=== PATIENT | female | born 1970 | race Caucasian/White ===

== ENCOUNTER 2016-04-18 15:38 | Inpatient (IN) | payer MEDICARE, MEDICAID ==
[~2016-04-18] VITALS: Ht 167.6 cm; Wt 64.9 kg
[2016-04-18 15:43] VITALS: BP 155/76; PULSE 114; RESP 26; O2SAT 100
[2016-04-18] MEDS ORDERED: 0.9% Sodium Chloride 1,000 ML IV ONE ×2 (16:15)
--- NOTE | 2016-04-18 16:17 | ED.REPORT ---
HPI-Overdose/Alcohol Toxicity Date of Service Apr 18, 2016 ED Provider: Jose R Tillman MD A 45 year old female with a medical history including Crohn's disease, alcohol abuse, COPD, rhabdomyolysis, frequent UTIs, and SBO presents to the ED requesting assistance with alcohol withdrawal. The patient has been regularly drinking six drinks per day for the past five years, but has only had two alcoholic drinks today - two hours prior to arrival. Current withdrawal symptoms include tremor and generalized myalgias. The patient also believes she is experiencing a Crohn's flare-up and a UTI, with symptoms including diarrhea ( x50), nausea, vomiting, abdominal pain, dehydration, subjective fever, diaphoresis, chills, dysuria, and urinary frequency onset "a couple of days ago. " Five days ago the patient finished a week-long course of Bactrim for a UTI, with short-term relief. The patient denies other symptoms. Nursing Notes Stated Complaint: CROHNS/DEHYDRATION Chief Complaint: General Complaint Nursing Notes Reviewed: Yes (InformedDNA, Matcha not reconciled) Allergies: Coded Allergies: TAPE (Verified Allergy, Mild, 04/18/16) azathioprine (Verified Allergy, Mild, 04/18/16) quetiapine (Verified Allergy, Mild, 04/18/16) trazodone (Verified Allergy, Mild, 04/18/16) hydroxyzine (Verified Adverse Reaction, Intermediate, PARADOXICAL ANXIETY/ HYPERACTIVITY, 04/18/16) Scheduled Benztropine Mesylate (Benztropine Mesylate) 0.5 Mg Tablet 0.5 MG PO TID Carbamazepine (Carbamazepine) 200 Mg Tablet 200 MG PO TID Fluoxetine (Fluoxetine) 40 Mg Capsule 40 MG PO DAILY Gabapentin (Gabapentin) 400 Mg Capsule 800 MG PO TID Haloperidol (Haloperidol) 1 Mg Tablet 1 MG PO BID Ipratropium [place] (Atrovent HFA) 200 Puff/12.9 Gm Inhaler 2 PUFF INH QID Omeprazole (Omeprazole) 20 Mg Capsule.dr 20 MG PO QAM Vedolizumab (Entyvio) 300 Mg Vial 300 MG IV [id number] Scheduled PRN Albuterol HFA (Proair HFA) 8.5 Gm Hfa.aer.ad 2 PUFFS INHALATION Q4H PRN PRN For Shortness of Breath Ondansetron ODT (Ondansetron ODT) 8 Mg Tab.rapdis 8 MG PO TID PRN PRN For Nausea Oxycodone (Roxicodone) 5 Mg Tablet 10 MG PO Q4H PRN PRN For Pain Promethazine Supp (Promethazine Supp) 25 Mg Supp 25 MG RECTAL Q8H PRN PRN For Nausea Tizanidine (Tizanidine) 4 Mg Tablet 2 MG PO TID PRN PRN Muscle Spasms General Time Seen by Provider: 16:16 Chief Complaint Other (Alcohol Withdrawal) Hx Obtained From: Patient Arrived By: Walk-in Onset Occurred: 1 - 4 hours ago (With additional symptoms onset "a couple of days ago") Symptom Duration: Since onset Location: : Abdomen (and generalized myalgias) Quality: Painful Severity: Current: Moderate Severity: Maximum: Moderate Associated with: Reports: Abdominal pain, Diarrhea, Lethargy, Nausea, Vomiting Pertinent Negative: Relieved by nothing Related History: Reports: Alcoholism, Substance abuse Immunizations: Unknown Recent Healthcare: No recent doctor visit Similar Sx Previous: Yes Past Medical History Past Medical History Notes: Last Admit 2013 w/rhabdomyolysis and substance abuse Past Medical History Rhabdomyolysis Crohn's disease SBO s/p ileocecectomy (2003) Raynaud phenomenon Erythema nodosum H/o Methamphetamine abuse H/o Opioid abuse and dependence, on Suboxone. Bronchiectasis and nodular densities by CT in January 2008. Neck and the groin adenopathy COPD Past Surgical History Hernia repair Ganglion cyst removal Appendectomy Ileocecectomy (2003) Social History Alcohol Use: >5 per day Other Social History: Good social support Ambulatory Status Independent Review of Systems Review of Systems Note: + Dehydration, tremor Constitutional: Reports: Chills, Fever (Subjective) Respiratory: Denies: Non-productive cough, Shortness of breath GI: Reports: Abdominal pain, Diarrhea, Nausea, Vomiting Musculoskeletal: Reports: Myalgia (Generalized) Skin: Reports Diaphoresis Complete sys rev & neg: except as marked. Female: Reports: Dysuria, Urinary frequency Physical Exam Physical Exam Notes: Initial Vital Signs Vital Signs (First) Date Time Temp Pulse Resp B/P Pulse Ox O2 Delivery O2 Flow Rate FiO2 04/18/16 15:43 36 114 26 155/76 100 Room Air Initial VS: Reviewed, Vital signs abnormal Head / Eyes: Atraumatic, Normocephalic General/Constitutional: Awake, Alert Distress / Hydration: Positive: Dehydration moderate Behavior: Positive: Anxious Appearance / Presentation: Positive: Cachectic Smells of alcohol Appears in withdrawal Respiratory / Chest: Breath sounds NL, Breath sounds = bilat, No respiratory distress Cardiovascular: Regular rhythm, Heart sounds NL Heart Rate / Rhythm: Positive: Tachycardia Abdomen: Soft, Non-tender No ascites Neurologic: Oriented X3, Speech NL Movement Abnormality: Positive: Tremor ENT: Airway patent Mouth: Positive: Mucous membranes dry Skin: Warm, Dry No track pearce Interpretation & Diagnostics URINE : Negative URINE DRUG SCREEN: Negative Lab Results Interpretation Result Diagram: 04/18/16 1635 04/18/16 1635 Test 04/18/16 16:35 White Blood Count 7.7th/mm3 (3.8-10.1) Red Blood Count 4.66mil/mm3 (3.90-5.20) Hemoglobin 14.0g/dL (12.0-15.6) Hematocrit 40.4% (35.0-46.0) Mean Corpuscular Volume 86.7fL (81-100) Mean Corpuscular Hemoglobin 30.0pg (27.0-35.0) Mean Corpuscular Hemoglobin Concent 34.7% (32.0-37.0) Red Cell Distribution Width 19.0% (12.3-15.4) Platelet Count 176bil/L (150-400) Neutrophils (%) (Auto) 64.3% (40-74) Lymphocytes (%) (Auto) 27.6% (14-46) Monocytes (%) (Auto) 6.3% (4-12) Eosinophils (%) (Auto) 1.3% (0-5) Basophils (%) (Auto) 0.4% (0-3) Erythrocyte Sedimentation Rate 44mm/hr (0-32) Prothrombin Time 11.7sec (8.1-12.5) Prothromb Time International Ratio 1.09ratio Sodium Level 136mEq/L (134-144) Potassium Level 3.8mEq/L (3.5-5.2) Chloride Level 101mEq/L (97-108) Carbon Dioxide Level 18mmol/L (18-29) Blood Urea Nitrogen 10mg/dL (6-24) Creatinine 0.66mg/dL (0.57-1.00) Estimat Glomerular Filtration Rate 138mL/min (>59) Glucose Level 86mg/dL (60-99) Calcium Level 8.4mg/dL (8.5-10.1) Total Bilirubin 0.7mg/dL (0.0-1.2) Aspartate Amino Transf (AST/SGOT) 44U/L (0-50) Alanine Aminotransferase (ALT/SGPT) 23U/L (0-32) Alkaline Phosphatase 90U/L (25-150) Total Creatine Kinase 110U/L (21-215) Total Protein 7.2g/dL (6.4-8.4) Albumin 4.1g/dL (3.4-5.0) Lipase 70U/L (13-60) Alcohol, Quantitative 158mg/dL (0-10) Lab Results Interpretation: CBC normal CMP normal ESR elevated Alcohol elevated Lactic acid marginally elevated, more difficult to interpret in this chronic alcoholic Blood cultures pending UA pending Lipase marginally elevated, likely secondary to chronic alcoholism Re-Eval/Medical Decision Med Decision/Clinical Course This is a 45-year-old female presents with a multitude of symptoms. She arrives tremulous, tachycardic, and smells of alcohol, reports been trying to stop drinking. She is heavily daily, and is concerned about withdrawal. This she has long history of Crohn's, and feels that she is having a "flare". She has had some diarrhea as well as some diffuse abdominal pain. She is also worried about UTI, was recently treated with Bactrim and finished antibiotics about 5 days ago, claims that she has "chronic UTIs" and requires multiple rounds of antibiotics. Exam patient has abnormal vitals, was very tachycardic, slightly tachypneic but is not febrile or hypotensive. She clinically appears to be in significant withdrawal is very tremulous and tachycardic. She is very restless. However she is mentating without overt delirium. Abdomen is soft and nontender without clinical signs of peritonitis, or medical findings indicated need for emergent abdominal imaging. The patient received multiple titrated rounds of diazepam per the CIWA protocol and is markedly improved on reevaluation. She is much less tremulous, also still slightly tremulous-and her tachycardia is improved. She is also much less restless, and again appears overall nontoxic. Serial abdomens continue remained soft and nontender without signs of peritonitis. Blood work reveals a mildly elevated sedimentation rate, and the patient is on immunosuppressives for her Crohn's, and this may be a component of a mild flare. Vicodin anything on physical exam, laboratories and really suggest antibiotics for Crohn's indicated. The urine has been sent, but has not been resulted the patient does have dysuria, if that urine is normal, and approximately warranted at that time. The patient does have a mildly elevated lactic acid, but is along the standing alcoholic which is known to cause mildly elevated lactic acid. Sepsis is in the differential but seems much less likely., Amoxil be warranted if the urine does return abnormal. Patient received fluids, and a small amount of pain medicine. The amount of diazepam required for management in the department, admission to the hospital continued management is warranted. Case is with the admitting hospitalist Source of Hx: Old records Re-Evaluation/Progress : Time of Eval: 18:44 Patient Status: Condition improved Re-Evaluation/Progress Note: Patient's tremor and pain have improved. Discussed with patient lab results, diagnosis, and plan for admit. Patient agrees with plan for care and all questions were addressed. Consultation : Referral / Consult Name: Tera Jacques MD Consulted With: Hospitalist Call Returned at: 18:21 Beer Cooler: Agrees with eval, Agrees with plan, Accepts admit Differential Diagnosis: Positive: Alcohol abuse, Intoxication, alcohol Counseled Regarding: Diagnosis, Lab results, Need for admission Discharge & Departure Impression: Primary Impression: Alcohol withdrawal Complication of substance-induced condition: uncomplicated Qualified Code: F10.230 - Alcohol dependence with withdrawal, uncomplicated Additional Impression: Crohns disease Gastrointestinal tract location: unspecified location Digestive disease complication type: without complications Qualified Code: K50.90 - Crohn's disease, unspecified, without complications Disposition: ADMITTED TO HOSPITAL Discharge Condition All VS Reviewed: Yes Condition: Improved Referrals: NOPCP (PCP) Tristan Attestation Portions of this note were transcribed by Mary Villasenor. I, Dr. Tillman, personally performed the history, physical exam, and medical decision-making; I reviewed and confirmed the accuracy of the information in the transcribed note. Signed by: Tristan Mendoza, 04/18/2016, 19:35 Jose R Tillman MD Apr 18, 2016 16:17 MARY VILLASENOR Apr 18, 2016 16:29 Signed by: Tristan Mendoza, 04/18/2016, 19:35 Jose R Tillman MD Apr 18, 2016 16:17 MARY VILLASENOR Apr 18, 2016 16:29
[2016-04-18] MEDS ORDERED: Promethazine Inj 25 MG in Dextrose 5%-Pha MIX 50 ML IV ONE (16:30)
[2016-04-18 16:45] LABS: BASOPHILS % (AUTO) 0.4 % (0-3); EOSINOPHILS % (AUTO) 1.3 % (0-5); MONOCYTES % (AUTO) 6.3 % (4-12); Mean Corpuscular Volume 86.7 fL (81-100); NEUTROPHILS % (AUTO) 64.3 % (40-74); Platelet Count 176 bil/L (150-400)
[2016-04-18 17:02] LABS: INR 1.09 ratio
[2016-04-18 17:18] LABS: ERYTHROCYTE SEDIMENTATION RATE 44 mm/hr (0-32)
[2016-04-18] MEDS: 0.9% Sodium Chloride 1,000 ML IV SCH (18:24)
[2016-04-18] MEDS ORDERED: Alum-Mag Hydrox-Simeth 30 mL Suspension PO PRN (18:25)
[2016-04-18] MEDS ORDERED: Thiamine Inj 100 MG, Folic Acid Inj 1 MG, Magnesium Sulfate 50% Inj 2 GM, Multivitamins... IV ONE ×5 (18:25)
[2016-04-18] MEDS ORDERED: Multivitamin w/Vit K Inj 10 ML, Thiamine Inj 100 MG, Folic Acid Inj 1 MG, Magnesium Sul... IV ONE ×5 (18:43)
[2016-04-18] MEDS ORDERED: HYDROmorphone 0.5 mg/0.5 mL iSecure Syringe IVPUSH ONE (18:45)
[2016-04-18] MEDS ORDERED: TIZA4TAB4 PO (18:47)
[2016-04-18] MEDS ORDERED: OMEP20CA11 PO (18:54)
[2016-04-18] MEDS ORDERED: VEDO300V IV (18:54)
[2016-04-18] MEDS ORDERED: ALBU8.5H2 INHALATION (18:54)
[2016-04-18] MEDS ORDERED: FLUO40CA PO (18:54)
[2016-04-18] MEDS ORDERED: PROM25SU47 RECTAL (18:54)
[2016-04-18] MEDS ORDERED: GABA-504 PO (18:54)
[2016-04-18] MEDS ORDERED: BENZ0.5T3 PO (18:54)
[2016-04-18] MEDS ORDERED: HALO1TAB PO (18:54)
[2016-04-18] MEDS ORDERED: CRB200T PO (18:54)
[2016-04-18] MEDS ORDERED: OXYC-474 PO (18:54)
[2016-04-18] MEDS ORDERED: ONDA8TAB10 PO (18:54)
[2016-04-18] MEDS ORDERED: ATRINH INH (18:56)
[2016-04-18 19:27] LABS: APPEARANCE,URINE CLEAR (CLEAR,HAZY); COLOR,URINE YELLOW (YELLOW); OCCULT BLOOD,URINE TRACE (NEGATIVE); PH,URINE 5.5 (5.0-8.0); UROBILINOGEN,URINE NORMAL (NORMAL)
[2016-04-18 19:40] VITALS: BP 153/94; PULSE 94; RESP 20; O2SAT 94
[2016-04-18 19:41] VITALS: BP 154/100; PULSE 90; RESP 17; O2SAT 99
[2016-04-18 19:49] VITALS: PULSE 90
--- NOTE | 2016-04-18 23:34 | PCM.HPMED ---
Subjective Date of Service Apr 18, 2016 Primary Provider: Admitting Physician: Tera Jacques MD Primary Care Physician: Nopcp Attending Physician: Tera Jacques MD Admit Status: From the Emergency Department, Full Admit, [facility] Telemetry Chief Complaint: Alcohol withdrawal History of Present Illness: 45 year old female with Alcoholism, Crohns disease and polysubstance abuse who presents to [facility] emergency department requesting assistance with alcohol withdrawal. Patient reports last drink was this morning. She also reports having diffuse diarrhea onset three days ago. The patient also reports nausea, vomiting, abdominal pain (diffuse, non radiating), dehydration, subjective fever, diaphoresis, chills, dysuria, and urinary frequency. Patient has history of Crohns with uncontrolled symptoms. The patient reports a history of chronic urinary tract infections with only short-term relief with antibiotics. She just finished a week-long course of Bactrim 5-6 days ago. She normally consumes approximately six alcoholic drinks per day, with withdrawal symptoms of tremor and generalized myalgias. Case discussed with PAULA Crocker score high and will be admitted for Alcohol withdrawal protocol Review of Systems: Pertinent positives as noted in HPI. All other systems were reviewed and are negative Allergies Coded Allergies: TAPE (Verified Allergy, Mild, 04/18/16) azathioprine (Verified Allergy, Mild, 04/18/16) quetiapine (Verified Allergy, Mild, 04/18/16) trazodone (Verified Allergy, Mild, 04/18/16) hydroxyzine (Verified Adverse Reaction, Intermediate, PARADOXICAL ANXIETY/ HYPERACTIVITY, 04/18/16) Home Medications From patient list Entyvio 300 mg IV q 8 weeks Zofran 8 mg tid PRN Omeprazole 20 mg daily Oxycodone 10 mg q 4 hours PRN Haldol 1 mg bid Gabapentin 800 mg tid Fluoxetine 40 mg daily Carbamazepine 200 mg tid Benztropine 0.5 mg tid Tizanidine 2 mg tid PRN Atrovent and Albuterol inhaler Promethazine 25 mg q 8 PRN PMH 1. Polysubstance abuse. a. Methamphetamine abuse, active. b. Opioid abuse and dependence, on Suboxone. c. Tobacco dependence, active. 2. Bronchiectasis and nodular densities by CT in January 2008. 3. Crohn disease, status post the ileocecectomy in 2003 for obstruction. 4. Neck and the groin adenopathy, seen by Dr. Blanco. Surgical History ileocecectomy Family History No family history of premature coronary disease Social History Hx Alcohol Use: Yes Alcoholic Drinks Per Day: 6 beers plus a day Hx Substance Use: Yes (Alcohol current, Meth 5 years ago quit) Hx Tobacco Use: Yes Smoking Status: Current Every Day Smoker Exam Vital Signs Vital Sign - Last Date Time Temp Pulse Resp B/P Pulse Ox O2 Delivery O2 Flow Rate FiO2 04/18/16 15:43 36 114 26 155/76 100 Room Air Exam General: Alert, Oriented X3, Cooperative,mild acute Distress with shaking and anxiety noted Eyes: PERRLA, Scleral Anicteric Mouth: Mouth Normal, Mucous Membranes dry Neck: Supple, no Thyromegaly, trachea central. Chest & Lungs: Clear to auscultation & percussion, No adventitious breath sounds, no crackles, no wheeze Cardiovascular: Normal S1, Normal S2, No Murmurs/Rubs/Gallops, Regular Rate/ Rhythm, (No JVD, no peripheral edema) Pulses: Radial (present and equal), Dorsalis Pedi (present and equal) Abdomen: Soft, Non-tender, Non-distended, Normoactive bowel tones. NO stigmata of liver disease Musculoskeletal: Unremarkable. Normal range of motion, no swollen or erythematous joints Extremities: No edema, no cyanosis, no clubbing. Skin: No rashes. Warm and dry, no erythematous areas Neurological: Grossly neurologically intact, Normal Speech, Sensation Intact Lymphatic: Lymph nodes Cervical and Axillary not palpable. Lab and Diagnostics Labs Laboratory Tests Test 04/18/16 16:35 White Blood Count 7.7th/mm3 (3.8-10.1) Red Blood Count 4.66mil/mm3 (3.90-5.20) Hemoglobin 14.0g/dL (12.0-15.6) Hematocrit 40.4% (35.0-46.0) Mean Corpuscular Volume 86.7fL (81-100) Mean Corpuscular Hemoglobin 30.0pg (27.0-35.0) Mean Corpuscular Hemoglobin Concent 34.7% (32.0-37.0) Red Cell Distribution Width 19.0% (12.3-15.4) Platelet Count 176bil/L (150-400) Neutrophils (%) (Auto) 64.3% (40-74) Lymphocytes (%) (Auto) 27.6% (14-46) Monocytes (%) (Auto) 6.3% (4-12) Eosinophils (%) (Auto) 1.3% (0-5) Basophils (%) (Auto) 0.4% (0-3) Erythrocyte Sedimentation Rate 44mm/hr (0-32) Prothrombin Time 11.7sec (8.1-12.5) Prothromb Time International Ratio 1.09ratio Sodium Level 136mEq/L (134-144) Potassium Level 3.8mEq/L (3.5-5.2) Chloride Level 101mEq/L (97-108) Carbon Dioxide Level 18mmol/L (18-29) Blood Urea Nitrogen 10mg/dL (6-24) Creatinine 0.66mg/dL (0.57-1.00) Estimat Glomerular Filtration Rate 138mL/min (>59) Glucose Level 86mg/dL (60-99) Lactic Acid Level 2.4mmol/L (0.4-2.0) Calcium Level 8.4mg/dL (8.5-10.1) Total Bilirubin 0.7mg/dL (0.0-1.2) Aspartate Amino Transf (AST/SGOT) 44U/L (0-50) Alanine Aminotransferase (ALT/SGPT) 23U/L (0-32) Alkaline Phosphatase 90U/L (25-150) Total Creatine Kinase 110U/L (21-215) Total Protein 7.2g/dL (6.4-8.4) Albumin 4.1g/dL (3.4-5.0) Lipase 70U/L (13-60) Alcohol, Quantitative 158mg/dL (0-10) Microbiology 04/18/16 Blood Culture, Received Pending Result Diagram: 04/18/16 1635 04/18/16 1635 Assessment & Plan 45 year old female with Alcoholism, crohns disease and polysubstance abuse who presents to [facility] emergency department requesting assistance with alcohol withdrawal. 1. Alcohol intoxication and withdrawal syndrome. Present on admission No evidence of Hepatitis. Patient denies any previous withdrawal seizures - monitor on telemetry - continue [facility] protocol - stamping die try out worker consult to provide outpatient resources and Detox placement 2. Acute diarrhea. Present on admission Suspect opioid withdrawal syndrome or Cronhs flare. C difficile colitis also considered given recent antibiotics exposure - PCR stool studies including C difficile testing - continue IV fluids - consider Imodium if no infectious cause is identified 3. Lactic acidosis. Present on admission due to tissue hypoxia from diarrhea. - will trend levels till normal - continue IV fluids 4. Cronhs disease' Suspect patient has a flare but unclear - consider steroids - currently on Entyvio 300 mg IV every 8 weeks - consider Gastroenterology consult 5. Nicotine dependence cessation discussed and encouraged especially the fact her Crohn worsens with smoking - Nicotine patch when requested 6. History of opioid abuse and dependence. She reports using Suboxone in the past. - continue Oxycodone PRN, no IV narcotics as this is not indicated - Acetaminophen as needed for mild pain/fever/headache - Bowel regimen as needed - Antiemetic as needed Patient admitted under inpatient status with expected length of stay > 2 midnights for severity of present symptoms, complexities of treatment plan and risk for adverse event . Resuscitation Status: CPR: Attempt Resuscitation Tera Jacques MD Apr 18, 2016 18:44
[2016-04-19] VITALS (8 sets, daily range): BP systolic 124–167; BP diastolic 91–108; PULSE 93–115; RESP 18–20; O2SAT 95–99
[2016-04-19] MEDS: Heparin 5,000 Unit/mL Inj SUBQ SCH ×3 (00:09→17:43)
[2016-04-19] MEDS: Ondansetron 2 mg/mL 2 mL Inj IVPUSH PRN ×4 (00:49→19:52)
[2016-04-19] MEDS: 0.9% Sodium Chloride 1,000 ML IV SCH ×2 (04:37→14:39)
--- NOTE | 2016-04-19 06:42 | NUR ---
Admit/Tele/CIWA Admitted to room @ 1999, on telemetry, SR 95, NS @100 , plus Banana Bag , CIWA ranged from 19-36. gave IV Diazepam 5 Mg x 1, 10 Mg x8, A&O x3 , somewhat confused at times, Uses call light appropriately , most of the time tremulous between medications, Nausea controlled w 8 Mg Zofran despite Pt claim that it doesn't work. Pt's history is more complicated that she will share openly, but she hints at polysubstance abuse. SW will follow
[2016-04-19] MEDS: Pantoprazole 20 mg ER24 Tablet PO SCH (08:18)
[2016-04-19] MEDS: Multivit-Miner-Folic Acid-Iron Tablet PO SCH (08:19)
--- NOTE | 2016-04-19 15:55 | NUR ---
Social Work Note: Initial Assessment Data& Assessment: EMR reviewed. SW met with pt at bedside to discuss discharge planning, SW role explained. Nini Oliva is a 45 year old female admitted on 04/18/2016 for ETOH Withdrawal and Crohns. Pt has Medicare and [employer]. Pt lives in [place] with her mother and is independent at baseline. Pt does not use any DME and does not have a or SNF hx. Pt does not have LTC insurance or VA benefits. Pt provided with DPOA/ADvance Directive paperwork to review and complete when possible. Pt explained she was interested in detoxing because she realized alcohol was making her Crohns worse instead of better. SW offered to send referral to [facility] for bedside assessment. Pt explained she will think about it and requested SW return later when she is feeling better and less drowsy. Pt denies any other needs at this time. SW to continue to follow. Plan: Anticipated discharge back home with mother when medically ready. SW to follow up with pt regarding CD assessment. Pt denies any other needs at this time. SW to continue to follow. ENRICO Plata Addendum: 04/19/16 at 1618 by LALIT OATES Amended: Links added.
--- NOTE | 2016-04-19 18:02 | NUR ---
CIWA/abdominal pain/diarrhea Cardiac: Pt denies CP, Tele: SR 90s-100s Resp: Pt reports mild SOB with activity, "I can't get a deep enough breath and I breath fast". SPO2 99% on RA. Continuous pulse ox on. Pt reports she has AIMEE, instructed to have family or friends bring in her CPAP GI/: Pt reports mild nausea, zofran given with some moderation, also reports diarrhea that she has had for "two or three years". Pt has Hx of Crohns. Neuro: A&Ox3, BERG, pt is impulsive, kyle on bed. CIWA from mid 20s this AM down to 13 through the course of the day. Extra [address] Lucero and pt asleep for last part of shift.
--- NOTE | 2016-04-19 20:17 | PCM.PNMED ---
Subjective Date of Service Apr 19, 2016 Subjective overnight: CIWA ranged from 19-36. gave IV Diazepam 5 Mg x 1, 10 Mg x8. No acute events otherwise. Today: She states that she is ready to try eating lunch. She does not believe that the diazepam is working appropriately. She believes lorazepam is the drug she needs. She states that she is ready to quit drinking. The patient continues to complain of headaches with vision changes which sound chronic in nature. Abdominal pain which sounds chronic in nature. Exam Vital Signs Vital Sign - Last Date Time Temp Pulse Resp B/P Pulse Ox O2 Delivery O2 Flow Rate FiO2 04/19/16 03:15 36.5 101 20 127/91 96 Room Air Intake and Output 04/18/16 04/18/16 04/19/16 Cumulative From/Thru 15:00 23:00 07:00 04/18/16 15:43 - 04/19/16 06:27 Intake Total 2000 ml 2000 ml 4000 ml Output Total 400 ml 400 ml Balance 2000 ml 1600 ml 3600 ml Intake Oral 0 ml 0 ml IV Total 2000 ml 2000 ml 4000 ml Output Urine Total 400 ml 400 ml # Voids 2 2 Exam General: Alert, Oriented X3, Cooperative,mild acute Distress with shaking and anxiety noted Eyes: PERRLA, Scleral Anicteric Mouth: Mouth Normal, Mucous Membranes dry Neck: Supple, no Thyromegaly, trachea central. Chest & Lungs: Clear to auscultation & percussion, No adventitious breath sounds, no crackles, no wheeze Cardiovascular: Normal S1, Normal S2, No Murmurs/Rubs/Gallops, Regular Rate/ Rhythm, (No JVD, no peripheral edema) Pulses: Radial (present and equal), Dorsalis Pedi (present and equal) Abdomen: Soft, reports pain not worse with palpation, Non-distended, Normoactive bowel tones. NO stigmata of liver disease Musculoskeletal: Unremarkable. Normal range of motion, no swollen or erythematous joints Extremities: No edema, no cyanosis, no clubbing. Skin: No rashes. Warm and dry, no erythematous areas Neurological: Grossly neurologically intact, Normal Speech, Sensation Intact : no vargas in place Lab and Diagnostics Result Diagram: 04/18/16 1635 04/18/16 1635 Microbiology Microbiology HILDA CULTURE BLOOD Preliminary 04/19/16-1921 Organism 1 POSITIVE BLOOD CULTURE GRAM STAIN RESULT GRAM POSITIVE COCCI ?STAPH BC BOTTLE Isolated from Aerobic Bottle of Set Drawn DATE CALLED: 04/19/16 TIME CALLED: 1800 CALLED BY: [facility] FLOOR/DOCTOR: CELINE/DELBERT LYNCH READ BACK YES TYPE OF DRAW NURSE COLLLECT TYPE NOT SPECIFIED TIME OF POSITIVITY 1710 Assessment & Plan 45 year old female with Alcoholism, crohns disease and polysubstance abuse who presents to [facility] emergency department requesting assistance with alcohol withdrawal. Hospital day 2 1. Alcohol intoxication and withdrawal syndrome. Present on admission, stable treated No evidence of Hepatitis. Patient denies any previous withdrawal seizures - monitor on telemetry - continue CIWA protocol with Diazepam - workers compensation administrator consult to provide outpatient resources and Detox placement - [facility] records indicate that the patient has no PCP but was possibly on haldol 1mg BID will follow up 2. Acute diarrhea. Present on admission, under evaluation stable - Suspect opioid withdrawal syndrome or Crohn's flare. C difficile colitis also considered given recent antibiotics exposure noted on [facility] records - PCR stool studies including C difficile testing sent out on 04/19 - continue IV fluids - consider Imodium if no infectious cause is identified 3. Lactic acidosis. Present on admission, under evaluation, stable - micro shows staph possible skin cassandra contaminant continue to follow procalcitonin - possible due to tissue hypoxia from diarrhea. - will trend levels till normal - continue IV fluids 4. Crohn's disease, chronic, under evaluation, under evaluation - possible Chrohn's flare but unclear - consider steroids - currently on Entyvio 300 mg IV every 8 weeks - consider Gastroenterology consult 5. Nicotine dependence, chronic, stable - cessation discussed and encouraged especially the fact her Crohn's worsens with smoking - high dose Nicotine patch given 04/19 6. History of opioid abuse and dependence, chronic, stable - She reports using Suboxone in the past. - continue Oxycodone PRN, no IV narcotics as this is not indicated - Acetaminophen as needed for mild pain/fever/headache - Bowel regimen as needed - Antiemetic as needed DVT prophylaxis - SCD and encourage ambulation GI prophylaxis - not indicated at this time disposition: likely discharge in 2-3 days with no unforseen setbacks in health, will likely need social work to help with referral to continued rehabilitation facility to promote sobriety Pain Evaluation: Adequate Pain Control GI Prophylaxis: Not indicated VTE Prophylaxis: SCDs VTE Mechanical Devices: Intermittant Pneumatic CD Resuscitation Status: CPR: Attempt Resuscitation Attending Statement The patient was seen and examined together with Dr. Basilio on 04/19/2016 and I agree with the history, exam and plan as outlined in the note above. . Matias Basilio DO Apr 19, 2016 07:38 Leon Lucero MD Apr 23, 2016 15:28
[2016-04-20] VITALS (7 sets, daily range): BP systolic 133–162; BP diastolic 90–109; PULSE 89–110; RESP 16–20; O2SAT 94–100
[2016-04-20] MEDS: Heparin 5,000 Unit/mL Inj SUBQ SCH ×4 (00:02→23:50)
[2016-04-20] MEDS ORDERED: cefTRIAXone Inj 2,000 MG in Dextrose 5% Minibag Plus 50 ML IV SCH (01:00)
[2016-04-20] MEDS ORDERED: Vancomycin Inj 1,500 MG in 0.9% Sodium Chloride 500 ML IV ONE (01:15)
[2016-04-20] MEDS: Vancomycin Dose per Pharmacist XX SCH ×2 (01:17→08:30)
[2016-04-20 03:28] LABS: BASOPHILS % (AUTO) 0.1 % (0-3); EOSINOPHILS % (AUTO) 2.4 % (0-5); MONOCYTES % (AUTO) 4.2 % (4-12); Mean Corpuscular Hemoglobin 29.6 pg (27.0-35.0); Mean Corpuscular Volume 90.4 fL (81-100); NEUTROPHILS % (AUTO) 72.6 % (40-74); Platelet Count 107 bil/L (150-400)
[2016-04-20 03:41] LABS: INR 0.96 ratio
[2016-04-20] MEDS: 0.9% Sodium Chloride 1,000 ML IV SCH ×2 (04:31→13:00)
--- NOTE | 2016-04-20 06:38 | NUR ---
CIWA/Blood Cultures/Urine Pt CIWA between 8-10 all shift. Administered 5mg Valium x3 and effective, pt able to rest intermittently during the shift. Pt also has positive blood cultures/urine. MD notified and pt started on Vanco and Ceftriaxone. VSS and Tele SR/T 90-110's.
--- NOTE | 2016-04-20 06:57 | PCM.CONPHA ---
Subjective Requesting Provider: Ángel Seay DO Alcohol withdrawal History of Present Illness bacteremia Reason for Pharmacy Consult: Vancomycin Dosing Objective Vital Signs Date Time Temp Pulse Resp B/P Pulse Ox O2 Delivery O2 Flow Rate FiO2 04/20/16 03:39 36.9 89 20 150/109 94 Room Air 04/19/16 23:33 36.9 110 20 124/97 95 Room Air 04/19/16 19:41 36.8 98 20 157/93 98 Room Air 04/19/16 16:01 36.9 100 18 138/99 95 Room Air 04/19/16 12:01 37.3 96 18 167/103 98 Room Air 04/19/16 11:04 107 04/19/16 08:07 36.6 93 20 151/108 99 Room Air Intake and Output 04/18/16 04/19/16 04/20/16 00:00 00:00 00:00 Intake Total 2000 ml 4325 ml Output Total 1350 ml Balance 2000 ml 2975 ml Weight (Kilograms): 63.700 Height (Feet): 5 Height (Inches): 6.00 Test 04/18/16 16:35 04/18/16 18:45 04/18/16 18:57 04/20/16 03:15 Erythrocyte Sedimentation Rate 44mm/hr (0-32) Total Creatine Kinase 110U/L (21-215) Lipase 70U/L (13-60) Alcohol, Quantitative 158mg/dL (0-10) Ammonia 17ug/dL (18-53) Urine Color Yellow (YELLOW) Urine Appearance Clear (CLEAR,HAZY) Urine pH 5.5 (5.0-8.0) Urine Specific Conrad <1.005 (1.003-1.035) Urine Protein Negativemg/dL (NEG,TRACE) Urine Glucose (UA) Negativemg/dL (NEGATIVE) Urine Ketones Negativemg/dL (NEGATIVE) Urine Occult Blood Trace (NEGATIVE) Urine Nitrite Negative (NEGATIVE) Urine Bilirubin Negative (NEGATIVE) Urine Urobilinogen Normalmg/dL (NORMAL) Urine Leukocyte Esterase Small (NEGATIVE) Urine RBC 0-2/hpf (0-2) Urine WBC 11-50/hpf (0-5) Urine Epithelial Cells Few/hpf (NONE-MOD) Urine Crystals None seen (NONE SEEN) Urine Bacteria Few/hpf (NONE-FEW) Urine Hyaline Casts None/lpf (NONE) Urine Granular Casts None seen (NONE SEEN) Urine Waxy Casts None seen (NONE SEEN) Urine Red Blood Cell Casts None seen (NONE SEEN) Urine White Blood Cell Casts None seen (NONE SEEN) Urine Mucus None seen (None Seen) Urine Trichomonas None seen (NONE SEEN) Urine Yeast None (NONE SEEN) Urinalysis Comment None Urine Culture Reflexed Indicated White Blood Count 9.3th/mm3 (3.8-10.1) Red Blood Count 4.05mil/mm3 (3.90-5.20) Hemoglobin 12.0g/dL (12.0-15.6) Hematocrit 36.6% (35.0-46.0) Mean Corpuscular Volume 90.4fL (81-100) Mean Corpuscular Hemoglobin 29.6pg (27.0-35.0) Mean Corpuscular Hemoglobin Concent 32.8% (32.0-37.0) Red Cell Distribution Width 18.8% (12.3-15.4) Platelet Count 107bil/L (150-400) Neutrophils (%) (Auto) 72.6% (40-74) Lymphocytes (%) (Auto) 20.6% (14-46) Monocytes (%) (Auto) 4.2% (4-12) Eosinophils (%) (Auto) 2.4% (0-5) Basophils (%) (Auto) 0.1% (0-3) Prothrombin Time 10.3sec (8.1-12.5) Prothromb Time International Ratio 0.96ratio Sodium Level 136mEq/L (134-144) Potassium Level 3.6mEq/L (3.5-5.2) Chloride Level 104mEq/L (97-108) Carbon Dioxide Level 22mmol/L (18-29) Blood Urea Nitrogen 3mg/dL (6-24) Creatinine 0.70mg/dL (0.57-1.00) Estimat Glomerular Filtration Rate 128mL/min (>59) Glucose Level 93mg/dL (60-99) Lactic Acid Level 0.7mmol/L (0.4-2.0) Calcium Level 7.5mg/dL (8.5-10.1) Total Bilirubin 0.8mg/dL (0.0-1.2) Aspartate Amino Transf (AST/SGOT) 68U/L (0-50) Alanine Aminotransferase (ALT/SGPT) 25U/L (0-32) Alkaline Phosphatase 92U/L (25-150) Total Protein 6.2g/dL (6.4-8.4) Albumin 3.3g/dL (3.4-5.0) Procalcitonin 0.05ng/mL (0.00-0.08) Assessment/Plan Assessment/Plan A/ - 45 y/o female patient admitted in patient on 04/18 for alcohol withdrawal and possible Crohn's flare. Late 04/19, blood culture drawn on 04/18 showed bacteremia and Vancomycin ordered for empirical coverage - Afebrile, WBC: 9.3 (7.7 on 04/18) - Wt: 63.7 kg, ht: 167.6 cm, Scr: 0.7 mg/dL, est. clearance ~ 100 ml/min, t1/ 2 ~8h, Vd ~ 45 L - Received Vancomycin 1.5G loading dose @0200 04/20 P/ - Give Vancomycin 1G iv q12h. Trough level ordered before 4th dose @0930 on 04/21 with estimate trough around 17 Pharmacy will continue to follow and make necessary adjustment Thank you for consulting clinical pharmacy in the care of this patient Phong Tolbert, PharmD, [facility] Adriana Tolbert Apr 20, 2016 06:57
[2016-04-20] MEDS ORDERED: Albuterol 2.5 mg/3 mL Inhalation Solution NEB PRN (07:00)
[2016-04-20] MEDS: Pantoprazole 20 mg ER24 Tablet PO SCH (07:54)
[2016-04-20] MEDS: Ipratropium HFA 200 Puff 12.9 Gm Inhaler INHALATION SCH ×4 (07:54→20:30)
[2016-04-20] MEDS: Multivit-Miner-Folic Acid-Iron Tablet PO SCH (08:44)
[2016-04-20] MEDS: chlordiazePOXIDE 25 mg Capsule PO PRN ×4 (09:54→23:50)
[2016-04-20] MEDS ORDERED: Vancomycin Inj 1,000 MG in IV Premix 1 EACH IV SCH ×2 (10:00→14:00)
[2016-04-20] MEDS ORDERED: Vancomycin Serum Trough XX ONE (13:30)
[2016-04-20] MEDS: Polyethylene Glycol (PEG) 17 Gm Powder PO PRN (15:44)
--- NOTE | 2016-04-20 15:58 | NUR ---
Social Work Note: Continued Discharge Planning Data& Assessment: SW met with pt at bedside to follow up on our conversation regarding her CD assessment. Pt explained she is not interested in speaking with anyone regarding treatment or resources because she is already enrolled in outpt CD tx and only has a few weeks left of her program. SW explained to pt that SW has our own CD assessment to complete with her, she requested SW come back tomorrow to complete the assessment as a friend had just entered the room and wanted to visit with him. SW to follow up with pt tomorrow to complete CD Assessment. Plan: Anticipated discharge home via POV when medically ready. SW to follow up with pt tomorrow to complete CD Assessment. SW to continue to follow. ENRICO Plata
--- NOTE | 2016-04-20 19:21 | NUR ---
CIWA Cardiac: Pt denies CP, Tele: SR 90s-100s Resp: pt stating mild SOB, SPO2 99% on RA, home inhalers scheduled. GI/: Pt reports mild nausea this AM, Po reglan given with good effect. Incontinent of urine in bed once. Pt has Hx of Crohns. Neuro: A&Ox3 able to BERG, CIWA 13 this AM down to 11 by end of shift, IV Valium changed to PO Librium.
--- NOTE | 2016-04-20 19:22 | PCM.PNMED ---
Subjective Date of Service Apr 20, 2016 Subjective overnight: Pt CIWA between 8-10 all shift. Administered 5mg Valium x3 and effective. Pt also has positive blood cultures/urine. notified and pt started on Vancomycin and Ceftriaxone. today: Patient is happy that she has been started on Librium states that she believes it will work better than the IV diazepam. She states that she is having her purchasing and claims supervisor changed to Dr. Borrego in hopes of having improvement in the treatment of her Crohn's. She states she has a date for stopping tobacco with her brother. Exam Vital Signs Vital Sign - Last Date Time Temp Pulse Resp B/P Pulse Ox O2 Delivery O2 Flow Rate FiO2 04/20/16 03:39 36.9 89 20 150/109 94 Room Air Intake and Output 04/19/16 04/19/16 04/20/16 Cumulative From/Thru 14:59 22:59 06:59 04/18/16 15:43 - 04/20/16 06:46 Intake Total 2325 ml 2481 ml 8806 ml Output Total 950 ml 2150 ml 3500 ml Balance 1375 ml 331 ml 5306 ml Intake Oral 1385 ml 850 ml 2235 ml IV Total 940 ml 1631 ml 6571 ml Output Urine Total 950 ml 2150 ml 3500 ml # Voids 2 # Bowel Movements 0 0 Exam General: Alert, Oriented X3, Cooperative, mild acute Distress with mild tremor noted Eyes: PERRLA, Scleral Anicteric Mouth: Mouth Normal, Mucous Membranes dry Neck: Supple, no Thyromegaly, trachea central. Chest & Lungs: Clear to auscultation & percussion, No adventitious breath sounds, no crackles, no wheeze Cardiovascular: Normal S1, Normal S2, No Murmurs/Rubs/Gallops, Regular Rate/ Rhythm, (No JVD, no peripheral edema) Pulses: Radial (present and equal), Dorsalis Pedi (present and equal) Abdomen: Soft, reports pain not worse with palpation, Non-distended, Normoactive bowel tones. NO stigmata of liver disease Musculoskeletal: Unremarkable. Normal range of motion, no swollen or erythematous joints Extremities: No edema, no cyanosis, no clubbing. Skin: No rashes. Warm and dry, no erythematous areas Neurological: Grossly neurologically intact, Normal Speech, Sensation Intact : no vargas in place Lab and Diagnostics Result Diagram: 04/20/16 0315 04/20/16 0315 Microbiology Microbiology HILDA CULTURE BLOOD Preliminary 04/20/16-1020 Organism 1 POSITIVE BLOOD CULTURE STAPH, PROBABLE COAGULASE NEG ID and Susceptibilities pending ISOLATED FROM ONE OF FOUR BOTTLES COLLECTED 04/18/16 Possible contaminant, clinical correlation required Microbiology HILDA CULT URINE Final 04/20/16-0828 Organism 1 ESCHERICHIA COLI U COLONY COUNT/QUANTITY 50,000-100,000 CFU/ml Organism 2 MIXED UROGENITAL CASSANDRA U COLONY COUNT/QUANTITY 10-25,000 CFU/ml 1. ESCHERICHIA COLI M.I.C Interp --------- ------ * AMOXICILLIN/CLAVULATE 4 S * AMPICILLIN 8 S * CEFAZOLIN (CEPHALOSPORIN) UTI 4 S * CEFEPIME <=1 S * CEFTRIAXONE <=1 S * CEFUROXIME SODIUM 4 S * CIPROFLOXACIN <=0.25 S * ERTAPENEM <=0.5 S * GENTAMICIN <=1 S * IMIPENEM <=1 S * LEVOFLOXACIN <=0.12 S * NITROFURANTOIN 32 S * TETRACYCLINE <=1 S * TOBRAMYCIN <=1 S * TRIMETHOPRIM/SULFAMETHOXAZOLE <=20 S Assessment & Plan 45 year old female with Alcoholism, crohns disease and polysubstance abuse who presents to [facility] emergency department requesting assistance with alcohol withdrawal. Hospital day 3 1. Alcohol intoxication and withdrawal syndrome. Present on admission, stable treated - No evidence of Hepatitis. Patient denied any previous withdrawal seizures - monitor on telemetry - continue CIWA protocol with IV Diazepam discontinued in favor or oral chlordiazepoxide 50mg every 4 hours - community support worker consult to provide outpatient resources and Detox placement - [facility] records indicate that the patient has no PCP but was possibly on haldol 1mg BID will follow up 2. Acute diarrhea. Present on admission, under evaluation stable - Suspect opioid withdrawal syndrome or Crohn's flare. C difficile colitis also considered given recent antibiotics exposure noted on [facility] records - PCR stool studies including C difficile testing sent out on 04/19 negative 3. Lactic acidosis. Present on admission, resolved - micro shows staph probably skin cassandra contaminant continue to follow procalcitonin - possible due to tissue hypoxia from diarrhea. 4. Crohn's disease, chronic, under evaluation - possible Chrohn's flare but unclear - consider steroids - currently on Entyvio 300 mg IV every 8 weeks - consider Gastroenterology consult 5. Nicotine dependence, chronic, stable - cessation discussed and encouraged especially the fact her Crohn's worsens with smoking - high dose Nicotine patch given 04/19 6. History of opioid abuse and dependence, chronic, stable - She reports using Suboxone in the past. - continue Oxycodone PRN, no IV narcotics as this is not indicated 7. unlikely Bacteremia, not present at admission, considered contaminant - The bacteria found in blood was a normal skin cassandra contaminant - Vancomycin was started and discontinued 8. unlikely Urinary Tract infection, present at admission, contaminant/ colonization - the patient had a combination of mixed urogenital cassandra and E. Coli - this combination is considered a contaminant/colonization - Ceftriaxone was started and discontinued - Acetaminophen as needed for mild pain/fever/headache - Bowel regimen as needed - Antiemetic as needed DVT prophylaxis - subcutaneous heparin GI prophylaxis - Protonix disposition: likely discharge in 2-3 days with no unforseen setbacks in health, will likely need social work to help with referral to continued rehabilitation facility to promote sobriety Pain Evaluation: Adequate Pain Control GI Prophylaxis: Proton Pump Inhibitor VTE Prophylaxis: Sub-Q Heparin (Unfractionated), SCDs VTE Mechanical Devices: Intermittant Pneumatic CD Resuscitation Status: CPR: Attempt Resuscitation Attending Statement The patient was seen and examined together with Dr. Basilio on 04/20/2016 and I agree with the history, exam and plan as outlined in the note above. . Matias Basilio DO Apr 20, 2016 07:38 Leon Lucero MD Apr 23, 2016 15:28
[2016-04-21 01:02] VITALS: O2SAT 99
[2016-04-21 03:35] VITALS: BP 129/80; PULSE 83; RESP 18
--- NOTE | 2016-04-21 04:47 | NUR ---
CIWA/Pain Pt CIWA ~10. PO librium helping. Also c/o abdominal pain ("pancreatic pain") and DE [place] which is controlled with scheduled oxycodone. Pt reports tolerable withdrawal symptoms and pain with regimen. Care ongoing
[2016-04-21 06:05] VITALS: PULSE 94
[2016-04-21 07:31] VITALS: BP 132/94; PULSE 87; RESP 16; O2SAT 95
[2016-04-21 07:36] LABS: Mean Corpuscular Hemoglobin 29.2 pg (27.0-35.0); Mean Corpuscular Volume 90.5 fL (81-100)
[2016-04-21 07:50] VITALS: PULSE 89
[2016-04-21] MEDS: Ipratropium HFA 200 Puff 12.9 Gm Inhaler INHALATION SCH (08:43)
[2016-04-21] MEDS: Polyethylene Glycol (PEG) 17 Gm Powder PO PRN (08:43)
[2016-04-21] MEDS: chlordiazePOXIDE 25 mg Capsule PO PRN (08:44)
[2016-04-21] MEDS: Pantoprazole 20 mg ER24 Tablet PO SCH (08:44)
[2016-04-21] MEDS: Multivit-Miner-Folic Acid-Iron Tablet PO SCH (08:44)
[2016-04-21] MEDS ORDERED: Vancomycin Serum Trough XX ONE ×2 (09:30→13:30)
--- NOTE | 2016-04-21 10:33 | NUR ---
Arranged hospital follow up appointment for Mon with a 3PM check in for a 315PM appointment with . Updated SECOND LANGUAGE TUTOR
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
[2016-04-21] MEDS ORDERED: CHLO25CA10 PO (10:43)
[2016-04-21] MEDS ORDERED: NICO1PAT6 TOPICAL (10:43)
--- NOTE | 2016-04-21 11:00 | PCM.DIMED ---
Matias Basilio 04/21/16 1058: Discharge Instructions Date of Service Apr 21, 2016 Dates of Hospitalization Apr 18, 2016 at 18:35 Discharge Diagnosis Discharge Diagnosis 1. Alcohol dependence and withdrawal 2. Acute diarrhea 3. Crohn's disease 4. Nicotine dependence 5. History of opioid dependence Medication Instructions Please continue all your regularly scheduled home medications. You will be sent out with a short prescription for Chlordiazepoxide 25mg by mouth as needed for alcohol withdrawal symptoms with no more than 1 every 4 hours. Please try and limit your use of this medication to when you have intolerable symptoms. Diet Other (Crohn's diet with low fat and limited or no dairy) Activity No restrictions Call your provider Fever or Chills, Shortness of breath, Bleeding, Chest pain, Vomitting, Excessive diarrhea, Weakness (unilateral) Patient Instructions You have cleared the worst of your alcohol withdrawal symptoms please continue to make healthy decisions in the future. We have provided a short course of Librium to help you through whatever withdrawal symptoms remain over the next few days. It is her best interest to seek help with alcohol addiction in the future including organizations like alcoholic's anonymous and crisis respite. Addiction is a difficult road to go along please use help including family and friends as well as other resources available. [facility] social workers have made arrangements included in this packet. It is in her best interest to also quit smoking cigarettes given your Crohn's disease. You have not had a cigarette days it would behoove you to continue this trend into the future. Use this hospitalization as the spring board for quitting both alcohol and tobacco. Please see his nicotine replacements like nicotine patches and nicotine gum if the cravings become overwhelming. Follow-up plan Please follow up with a provider in the [facility] residency clinic with a appointment scheduled on 04/27/2016. An appointment has been scheduled with your learning administrator Dr. Shetty for 04/26/2006. Appointment was attempted to be made with Dr. Borrego however he would not be able to see you for months. If you would like to change your learning administrator you will have to attempt this on your own accord in the future. Follow-up Provider: [facility] Residency Clinic Follow-up with PCP in: 1 week Provider: Mckinley Shetty MD Follow-up in: 1 week (As soon as possible) Leon Lucero MD 04/23/16 1529: Discharge Instructions Attending's Statement The patient was seen and examined together with Dr. Basilio on 04/21/2016 and I agree with the history, exam and plan as outlined in the note above. . Matias Basilio DO Apr 21, 2016 10:58 Leon Lucero MD Apr 23, 2016 15:29
[2016-04-21] MEDS ORDERED: ONDA4TAB9 PO (11:07)
--- NOTE | 2016-04-21 12:55 | NUR ---
Discharge Pt discharged home today at 12:45. Pt off floor via wheelchair with all belongings in the company of the nurse and her brother to private vehicle. Pt given prescriptions, education on conditions and meds, and follow up instructions. Extra time was spent educating pt on Librium use for DTs and smoking cessation. Pt voices understanding.
--- NOTE | 2016-04-21 14:42 | PCM.PNMED ---
Subjective Date of Service Apr 21, 2016 Subjective overnight: Pt CIWA ~10 with PO Librium helping with withdrawal symptoms Today: Patient states that she is feeling improved and ready to be discharged with follow up with her PCP and [facility] Residency clinic. She would like to get an appointment with Dr. Borrego but understands that his schedule is booked for months. She will follow up with resources for alcohol dependence. Exam Vital Signs Vital Sign - Last Date Time Temp Pulse Resp B/P Pulse Ox O2 Delivery O2 Flow Rate FiO2 04/21/16 07:31 36.8 87 16 132/94 95 Room Air 04/21/16 03:35 2.00 95 Intake and Output 04/20/16 04/20/16 04/21/16 Cumulative From/Thru 15:00 23:00 07:00 04/18/16 15:43 - 04/21/16 05:22 Intake Total 1195 ml 1320 ml 53061 ml Output Total 1400 ml 700 ml 5600 ml Balance -205 ml 620 ml 5721 ml Intake Oral 400 ml 1320 ml 3955 ml IV Total 795 ml 7366 ml Output Urine Total 1400 ml 700 ml 5600 ml # Voids 2 # Bowel Movements 0 0 Exam General: Alert, Oriented X3, Cooperative, mild acute Distress with mild tremor noted Eyes: PERRLA, Scleral Anicteric Mouth: Mouth Normal, Mucous Membranes moist Neck: Supple, no Thyromegaly, trachea central. Chest & Lungs: Clear to auscultation & percussion, No adventitious breath sounds, no crackles, no wheeze Cardiovascular: Normal S1, Normal S2, No Murmurs/Rubs/Gallops, Regular Rate/ Rhythm, (No JVD, no peripheral edema) Pulses: Radial (present and equal), Dorsalis Pedi (present and equal) Abdomen: Soft, reports pain not worse with palpation, Non-distended, Normoactive bowel tones. NO stigmata of liver disease Musculoskeletal: Unremarkable. Normal range of motion, no swollen or erythematous joints Extremities: No edema, no cyanosis, no clubbing. Skin: No rashes. Warm and dry, no erythematous areas Neurological: Grossly neurologically intact, Normal Speech, Sensation Intact : no vargas in place Lab and Diagnostics Result Diagram: 04/21/16 0720 04/20/16 0315 Microbiology Microbiology HILDA CULTURE BLOOD Preliminary 04/20/16-1020 Organism 1 POSITIVE BLOOD CULTURE STAPH, PROBABLE COAGULASE NEG ID and Susceptibilities pending ISOLATED FROM ONE OF FOUR BOTTLES COLLECTED 04/18/16 Possible contaminant, clinical correlation required Microbiology HILDA CULT URINE Final 04/20/16-827 Organism 1 ESCHERICHIA COLI U COLONY COUNT/QUANTITY 50,000-100,000 CFU/ml Organism 2 MIXED UROGENITAL CASSANDRA U COLONY COUNT/QUANTITY 10-25,000 CFU/ml 1. ESCHERICHIA COLI M.I.C Interp --------- ------ * AMOXICILLIN/CLAVULATE 4 S * AMPICILLIN 8 S * CEFAZOLIN (CEPHALOSPORIN) UTI 4 S * CEFEPIME <=1 S * CEFTRIAXONE <=1 S * CEFUROXIME SODIUM 4 S * CIPROFLOXACIN <=0.25 S * ERTAPENEM <=0.5 S * GENTAMICIN <=1 S * IMIPENEM <=1 S * LEVOFLOXACIN <=0.12 S * NITROFURANTOIN 32 S * TETRACYCLINE <=1 S * TOBRAMYCIN <=1 S * TRIMETHOPRIM/SULFAMETHOXAZOLE <=20 S Assessment & Plan 45 year old female with Alcoholism, crohns disease and polysubstance abuse who presents to [facility] emergency department requesting assistance with alcohol withdrawal. Hospital day 4 1. Alcohol intoxication and withdrawal syndrome. Present on admission, stable treated - No evidence of Hepatitis. Patient denied any previous withdrawal seizures - monitored on telemetry - continue CIWA protocol with IV Diazepam discontinued in favor or oral chlordiazepoxide 50mg every 4 hours - foster care social worker consult to provide outpatient resources and Detox placement - [facility] records indicate that the patient has no PCP but was possibly on haldol 1mg BID will follow up 2. Thrombocytopenia, not present on admission, under evaluation - Platelets dropped from 176K at admission to 80K - suspected Heparin Induced Thrombocytopenia - discontinued heparin - ordered Heparin Antibodies 2. Acute diarrhea. Present on admission, under evaluation stable - Suspect opioid withdrawal syndrome or Crohn's flare. C difficile colitis also considered given recent antibiotics exposure noted on [facility] records - PCR stool studies including C difficile testing sent out on 04/19 negative 3. Lactic acidosis. Present on admission, resolved - micro shows staph probably skin cassandra contaminant continue to follow procalcitonin - possible due to tissue hypoxia from diarrhea. 4. Crohn's disease, chronic, under evaluation - possible Chrohn's flare but unclear - currently on Entyvio 300 mg IV every 8 weeks - Gastroenterology follow up scheduled 5. Nicotine dependence, chronic, stable - cessation discussed and encouraged especially the fact her Crohn's worsens with smoking - high dose Nicotine patch given 04/19 6. History of opioid abuse and dependence, chronic, stable - She reports using Suboxone in the past. - continue Oxycodone PRN, no IV narcotics as this is not indicated 8. unlikely Bacteremia, not present at admission, considered contaminant - The bacteria found in blood was a normal skin cassandra contaminant - Vancomycin was started and discontinued 9. unlikely Urinary Tract infection, present at admission, contaminant/ colonization - the patient had a combination of mixed urogenital cassandra and E. Coli - this combination is considered a contaminant/colonization - Ceftriaxone was started and discontinued - Acetaminophen as needed for mild pain/fever/headache - Bowel regimen as needed - Antiemetic as needed disposition: discharged home with follow up with [facility] residency clinic and gastroenterology GI Prophylaxis: Proton Pump Inhibitor VTE Prophylaxis: Sub-Q Heparin (Unfractionated), SCDs VTE Mechanical Devices: Intermittant Pneumatic CD Resuscitation Status: CPR: Attempt Resuscitation Attending Statement The patient was seen and examined together with Dr. Basilio on 04/21/2016 and I agree with the history, exam and plan as outlined in the note above. . Matias Basilio DO Apr 21, 2016 08:01 Leon Lucero MD Apr 23, 2016 15:29
--- NOTE | 2016-04-21 15:03 | PCM.DC.MED ---
Discharge Summary Date of Service Apr 21, 2016 Dates of Hospitalization Date of Hospital Admission Apr 18, 2016 at 18:35 Date of Discharge: Apr 21, 2016 Providers: Admitting Physician: Tera Jacques MD Primary Care Physician: Nopcp Attending Physician: Tera Jacques MD Diagnosis at Time of Discharge Diagnosis at Time of Discharge 1. Alcohol dependence and withdrawal 2. Thrombocytopenia with suspected HIT antibodies ordered 3. Acute diarrhea 4. Crohn's disease 5. Nicotine dependence 6. History of opioid dependence Brief History from the H&P of Tera Jacques MD "45 year old female with Alcoholism, Crohns disease and polysubstance abuse who presents to [facility] emergency department requesting assistance with alcohol withdrawal. Patient reports last drink was this morning. She also reports having diffuse diarrhea onset three days ago. The patient also reports nausea, vomiting, abdominal pain (diffuse, non radiating), dehydration, subjective fever, diaphoresis, chills, dysuria, and urinary frequency. Patient has history of Crohns with uncontrolled symptoms. The patient reports a history of chronic urinary tract infections with only short-term relief with antibiotics. She just finished a week-long course of Bactrim 5-6 days ago. She normally consumes approximately six alcoholic drinks per day, with withdrawal symptoms of tremor and generalized myalgias. Case discussed with Dr Tillman, PAULA score high and will be admitted for Alcohol withdrawal protocol" Hospital Course 45 year old female with Alcoholism, crohns disease and polysubstance abuse who presents to [facility] emergency department requesting assistance with alcohol withdrawal. Hospital day 4 1. Alcohol intoxication and withdrawal syndrome. Present on admission, stable treated - No evidence of Hepatitis. Patient denied any previous withdrawal seizures - monitored on telemetry - continued CIWA protocol with IV Diazepam discontinued in favor or oral chlordiazepoxide 50mg every 4 hours - forensic social worker consulted to provide outpatient resources and Detox placement - [facility] records indicate that the patient has no PCP but was possibly on haldol 1mg BID will follow up 2. Thrombocytopenia, not present on admission, under evaluation - Platelets dropped from 176K at admission to 80K - suspected Heparin Induced Thrombocytopenia - discontinued heparin - ordered Heparin Antibodies 2. Acute diarrhea. Present on admission, under evaluation stable - Suspect opioid withdrawal syndrome or Crohn's flare. C difficile colitis also considered given recent antibiotics exposure noted on [facility] records - PCR stool studies including C difficile testing sent out on 04/19 negative 3. Lactic acidosis. Present on admission, resolved - micro shows staph probably skin cassadnra contaminant continue to follow procalcitonin - possible due to tissue hypoxia from diarrhea. 4. Crohn's disease, chronic, under evaluation - possible Chrohn's flare but unclear - currently on Entyvio 300 mg IV every 8 weeks - Gastroenterology follow up scheduled 5. Nicotine dependence, chronic, stable - cessation discussed and encouraged especially the fact her Crohn's worsens with smoking - high dose Nicotine patch given 04/19 6. History of opioid abuse and dependence, chronic, stable - She reports using Suboxone in the past. - continue Oxycodone PRN, no IV narcotics as this is not indicated 7. unlikely Bacteremia, not present at admission, considered contaminant - The bacteria found in blood was a normal skin cassandra contaminant - Vancomycin was started and discontinued 8. unlikely Urinary Tract infection, present at admission, contaminant/ colonization - the patient had a combination of mixed urogenital cassandra and E. Coli - this combination is considered a contaminant/colonization - Ceftriaxone was started and discontinued - Acetaminophen as needed for mild pain/fever/headache - Bowel regimen as needed - Antiemetic as needed Exam Vital Signs (Last) Date Time Temp Pulse Resp B/P Pulse Ox O2 Delivery O2 Flow Rate FiO2 04/21/16 07:50 89 04/21/16 07:31 36.8 16 132/94 95 Room Air 04/21/16 03:35 2.00 95 Exam General: Alert, Oriented X3, Cooperative, mild acute Distress with mild tremor noted Eyes: PERRLA, Scleral Anicteric Mouth: Mouth Normal, Mucous Membranes dry Neck: Supple, no Thyromegaly, trachea central. Chest & Lungs: Clear to auscultation & percussion, No adventitious breath sounds, no crackles, no wheeze Cardiovascular: Normal S1, Normal S2, No Murmurs/Rubs/Gallops, Regular Rate/ Rhythm, (No JVD, no peripheral edema) Pulses: Radial (present and equal), Dorsalis Pedi (present and equal) Abdomen: Soft, reports pain not worse with palpation, Non-distended, Normoactive bowel tones. NO stigmata of liver disease Musculoskeletal: Unremarkable. Normal range of motion, no swollen or erythematous joints Extremities: No edema, no cyanosis, no clubbing. Skin: No rashes. Warm and dry, no erythematous areas Neurological: Grossly neurologically intact, Normal Speech, Sensation Intact : no vargas in place Test 04/18/16 16:35 04/18/16 18:45 04/18/16 18:57 04/20/16 03:15 Erythrocyte Sedimentation Rate 44mm/hr (0-32) Total Creatine Kinase 110U/L (21-215) Lipase 70U/L (13-60) Alcohol, Quantitative 158mg/dL (0-10) Ammonia 17ug/dL (18-53) Urine Color Yellow (YELLOW) Urine Appearance Clear (CLEAR,HAZY) Urine pH 5.5 (5.0-8.0) Urine Specific [place] <1.005 (1.003-1.035) Urine Protein Negativemg/dL (NEG,TRACE) Urine Glucose (UA) Negativemg/dL (NEGATIVE) Urine Ketones Negativemg/dL (NEGATIVE) Urine Occult Blood Trace (NEGATIVE) Urine Nitrite Negative (NEGATIVE) Urine Bilirubin Negative (NEGATIVE) Urine Urobilinogen Normalmg/dL (NORMAL) Urine Leukocyte Esterase Small (NEGATIVE) Urine RBC 0-2/hpf (0-2) Urine WBC 11-50/hpf (0-5) Urine Epithelial Cells Few/hpf (NONE-MOD) Urine Crystals None seen (NONE SEEN) Urine Bacteria Few/hpf (NONE-FEW) Urine Hyaline Casts None/lpf (NONE) Urine Granular Casts None seen (NONE SEEN) Urine Waxy Casts None seen (NONE SEEN) Urine Red Blood Cell Casts None seen (NONE SEEN) Urine White Blood Cell Casts None seen (NONE SEEN) Urine Mucus None seen (None Seen) Urine Trichomonas None seen (NONE SEEN) Urine Yeast None (NONE SEEN) Urinalysis Comment None Urine Culture Reflexed Indicated Neutrophils (%) (Auto) 72.6% (40-74) Lymphocytes (%) (Auto) 20.6% (14-46) Monocytes (%) (Auto) 4.2% (4-12) Eosinophils (%) (Auto) 2.4% (0-5) Basophils (%) (Auto) 0.1% (0-3) Prothrombin Time 10.3sec (8.1-12.5) Prothromb Time International Ratio 0.96ratio Lactic Acid Level 0.7mmol/L (0.4-2.0) Procalcitonin 0.05ng/mL (0.00-0.08) Test 04/21/16 07:20 04/21/16 09:32 White Blood Count 6.2th/mm3 (3.8-10.1) Red Blood Count 3.90mil/mm3 (3.90-5.20) Hemoglobin 11.4g/dL (12.0-15.6) Hematocrit 35.3% (35.0-46.0) Mean Corpuscular Volume 90.5fL (81-100) Mean Corpuscular Hemoglobin 29.2pg (27.0-35.0) Mean Corpuscular Hemoglobin Concent 32.3% (32.0-37.0) Red Cell Distribution Width 18.8% (12.3-15.4) Platelet Count 80bil/L (150-400) Sodium Level 137mEq/L (134-144) Potassium Level 3.9mEq/L (3.5-5.2) Chloride Level 103mEq/L (97-108) Carbon Dioxide Level 21mmol/L (18-29) Blood Urea Nitrogen 4mg/dL (6-24) Creatinine 0.60mg/dL (0.57-1.00) Estimat Glomerular Filtration Rate 153mL/min (>59) Glucose Level 92mg/dL (60-99) Calcium Level 8.0mg/dL (8.5-10.1) Total Bilirubin 0.3mg/dL (0.0-1.2) Aspartate Amino Transf (AST/SGOT) 73U/L (0-50) Alanine Aminotransferase (ALT/SGPT) 33U/L (0-32) Alkaline Phosphatase 95U/L (25-150) Total Protein 6.0g/dL (6.4-8.4) Albumin 3.0g/dL (3.4-5.0) Microbiology Results Microbiology HILDA CULTURE BLOOD Preliminary 04/20/16-1020 Organism 1 POSITIVE BLOOD CULTURE STAPH, PROBABLE COAGULASE NEG ID and Susceptibilities pending ISOLATED FROM ONE OF FOUR BOTTLES COLLECTED 04/18/16 Possible contaminant, clinical correlation required Microbiology HILDA CULT URINE Final 04/20/16-827 Organism 1 ESCHERICHIA COLI U COLONY COUNT/QUANTITY 50,000-100,000 CFU/ml Organism 2 MIXED UROGENITAL CASSANDRA U COLONY COUNT/QUANTITY 10-25,000 CFU/ml 1. ESCHERICHIA COLI M.I.C Interp --------- ------ * AMOXICILLIN/CLAVULATE 4 S * AMPICILLIN 8 S * CEFAZOLIN (CEPHALOSPORIN) UTI 4 S * CEFEPIME <=1 S * CEFTRIAXONE <=1 S * CEFUROXIME SODIUM 4 S * CIPROFLOXACIN <=0.25 S * ERTAPENEM <=0.5 S * GENTAMICIN <=1 S * IMIPENEM <=1 S * LEVOFLOXACIN <=0.12 S * NITROFURANTOIN 32 S * TETRACYCLINE <=1 S * TOBRAMYCIN <=1 S * TRIMETHOPRIM/SULFAMETHOXAZOLE <=20 S Discharge Medications Discharge Medications Fluoxetine (Fluoxetine) 40 Mg Capsule 40 MG PO DAILY (Reported) Gabapentin (Gabapentin) 400 Mg Capsule 800 MG PO TID (Reported) Ipratropium [place] (Atrovent HFA) 200 Puff/12.9 Gm Inhaler 2 PUFF INH QID ( Reported) Nicotine 21 mg/24 hr Patch (Nicotine 21 mg/24 hr Patch) 1 Each Patch.td24 1 PATCH TOPICAL DAILY Prescribed by: MATIAS GUTIERRES DO Omeprazole (Omeprazole) 20 Mg Capsule.dr 20 MG PO QAM (Reported) Vedolizumab (Entyvio) 300 Mg Vial 300 MG IV [id number] (Reported) As needed Albuterol HFA (Proair HFA) 8.5 Gm Hfa.aer.ad 2 PUFFS INHALATION Q4H PRN PRN For Shortness of Breath (Reported) Chlordiazepoxide (Chlordiazepoxide) 25 Mg Capsule 25 MG PO Q4 PRN PRN Withdrawal Symptoms Prescribed by: MATIAS GUTIERRES DO Ondansetron ODT (Ondansetron ODT) 8 Mg Tab.rapdis 8 MG PO TID PRN PRN For Nausea (Reported) Ondansetron ODT (Zofran ODT) 4 Mg Tablet 4 MG PO Q4H PRN PRN For Nausea Prescribed by: MATIAS GUTIERRES, Oxycodone (Roxicodone) 5 Mg Tablet 10 MG PO Q4H PRN PRN For Pain (Reported) Promethazine Supp (Promethazine Supp) 25 Mg Supp 25 MG RECTAL Q8H PRN PRN For Nausea (Reported) Tizanidine (Tizanidine) 4 Mg Tablet 2 MG PO TID PRN PRN Muscle Spasms (Reported ) Additional med instructions Please continue all your regularly scheduled home medications. You will be sent out with a short prescription for Chlordiazepoxide 25mg by mouth as needed for alcohol withdrawal symptoms with no more than 1 every 4 hours. Please try and limit your use of this medication to when you have intolerable symptoms. Followup Plan Disposition: home Follow-up plan Please follow up with a provider in the [facility] residency clinic with a appointment scheduled on 04/27/2016. An appointment has been scheduled with your pressure steamer tender Dr. Shetty for 04/26/2006. Appointment was attempted to be made with Dr. Borrego however he would not be able to see you for months. If you would like to change your pressure steamer tender you will have to attempt this on your own accord in the future. Discharge Diet: Other (Crohn's diet with low fat and limited or no dairy) Discharge Activity: No restrictions Patient Instructions You have cleared the worst of your alcohol withdrawal symptoms please continue to make healthy decisions in the future. We have provided a short course of Librium to help you through whatever withdrawal symptoms remain over the next few days. It is her best interest to seek help with alcohol addiction in the future including organizations like [facility] and crisis respite. Addiction is a difficult road to go along please use help including family and friends as well as other resources available. [facility] social workers have made arrangements included in this packet. It is in her best interest to also quit smoking cigarettes given your Crohn's disease. You have not had a cigarette days it would behoove you to continue this trend into the future. Use this hospitalization as the spring board for quitting both alcohol and tobacco. Please see his nicotine replacements like nicotine patches and nicotine gum if the cravings become overwhelming. Follow-up Provider: [facility] Residency Clinic Follow-up with PCP in: 1 week Provider: Mckinley Shetty MD Follow-up in: 1 week (As soon as possible) Time spent Greater than 30 minutes was spent in preparation of discharge with greater than 50% of that time dedicated to patient counseling and coordination of care. . Attending Statement The patient was seen and examined together with Dr. Gutierres on 04/21/2016 and I agree with the history, exam and plan as outlined in the note above. . copies to: [facility] Residency Clinic Matias Gutierres DO Apr 21, 2016 15:02 Leon Lucero MD Apr 23, 2016 15:30
== END 2016-04-21 13:00 | disposition home or self-care (01) | DRG 897 ==
LOC: SED 15:38 → PCC 18:35
PROVIDERS: ADMIT Hospitalist; ATTEND Hospitalist
DX: F10.220 Alcohol dependence with intoxication, uncomplicated (principal); E87.2 Acidosis; K50.90 Crohn's disease, unspecified, without complications; F10.239 Alcohol dependence with withdrawal, unspecified; F17.200 Nicotine dependence, unspecified, uncomplicated; D75.82 Heparin induced thrombocytopenia (HIT); T45.515A Adverse effect of anticoagulants, initial encounter; E86.0 Dehydration; Z87.440 Personal history of urinary (tract) infections